=== PATIENT | female | born 1950 | race Caucasian/White ===

== ENCOUNTER 2024-12-20 15:06 | Emergency (ER) | payer MEDICARE, MEDICAID, SELFPAY ==
[2024-12-20 15:11] VITALS: BP 112/71; PULSE 86; RESP 20; TEMP 36.4; O2SAT 93
[2024-12-20 15:21] VITALS: PULSE 86; RESP 17; O2SAT 98; BMI 37.3
--- NOTE | 2024-12-20 15:21 | PC.NURSE ---
Pt. here from home to room 1, pt. states she took 50 units of Insulin Glargine-yfgn, pt. states it's a brand new insulin for her and she just started taking this insulin 12/14/24, pt. states she usually eats when she takes the medication and today she didn't eat. Pt. states she was found unresponsive by her grand daughter. Pt. is a GCS of 15 at this time.
--- NOTE | 2024-12-20 15:38 | EKG_ITS ---
[facility] Test Date: 2024-12-20 Pat Name: EVIN MUNOZ Department: Room: - Gender: Female Detail Manager: : [id number] Requested By: Wild More Order Number: [id number] Reading MD: Wild More Measurements Intervals [place] Rate: 83 P: 14 FL: 152 QRS: -28 QRSD: 88 T: 41 QT: 411 QTc: 484 Interpretive Statements SINUS RHYTHM LOW QRS VOLTAGE IN PRECORDIAL LEADS [QRS DEFLECTION < 1.0 mV IN CHEST LEADS] PATTERN CONSISTENT WITH PULMONARY DISEASE POSSIBLE RIGHT VENTRICULAR CONDUCTION DELAY [RSR (QR) IN V1/V2] INFERIOR MYOCARDIAL INFARCTION , PROBABLY OLD [40+ ms Q WAVE AND/OR ST/T ABNORMALITY IN II/aVF] Compared to ECG 12/05/2023 21:33:43 Sinus tachycardia no longer present Left-axis deviation no longer present Myocardial infarct finding still present /store/S0/[id number]/[id number].pdf
--- NOTE | 2024-12-20 15:38 | XR_ITS ---
Examination: AP chest single view Technique one AP portable semiupright chest single view Exam date and time: December 20, 2024 1541 hrs. Comparison April 17, 2019 Indications: Shortness of breath hypoglycemia today. Findings: Mild prominence cardiac contour Prominent vascular congestion Early septal edema the lung bases CABG Impression: Mild heart failure
--- NOTE | 2024-12-20 15:49 | PC.NURSE ---
Dr. Pat states it's ok to feed pt. sandwich, juice and chips given.
[2024-12-20] MEDS: SODIUM CHLORIDE 0.9% 1000 ML 1,000 ML 999 ML IV (15:50)
[2024-12-20 15:55] VITALS: BP 122/69; PULSE 81; RESP 17; TEMP 36.4; O2SAT 95
[2024-12-20 15:58] LABS: Collection Type, Urine Clean Catch; Squamous Epithelial Cell,Urine 0 /hpf (0-5)
--- NOTE | 2024-12-20 16:01 | PC.NURSE ---
Pt.'s daughter Patricia is bedside. [phone].
--- NOTE | 2024-12-20 16:01 | PD.EDRECHK ---
ED Recheck Abnl Lab Rx-RME/HPI General Chief Complaint: Recheck/Abnormal Lab/Rx Stated Complaint: HYPOGLYCEMIA Time Seen by Provider: 12/20/24 15:11 Arrival date/time: 12/20/24 15:06 RME / HPI RME / HPI narrative: This section includes all my notes and documentations, including HPI, PE, and ED course.? Wild Pat MD HPI: ROS: All negative except as documented in HPI. Physical Exam: General:? Alert and oriented.?? Eyes:? Conjunctivae and lids clear.?? ENT:? No nasal congestion.?? Neck:? Supple.?? Lungs:? No respiratory distress.?? Skin:? Warm and dry.?? Neuro:? Alert and oriented X 3.?? Physical Exam: General:? Alert and oriented.? No acute distress when remaining still.?? Eyes:? Conjunctivae and lids clear.? ENT:? No nasal congestion.? Neck:? Supple.? Heart:? RRR.? Lungs:? No respiratory distress.? Good air movement.? No rhonchi, wheezing, rales.?? Abdomen:? Soft and nontender.?? Legs:? No clubbing, cyanosis, edema.? Skin:? Warm and dry.?? Neuro:? Alert and oriented X 3.?? I reviewed all diagnostic test results. My interpretation of the EKG is? My interpretation of the chest x-ray is My review of the CT report is? Blood tests and urine tests? At this point, diagnoses include? Treatment here included? Significant improvement Not yet done: I discussed the case with our hospitalist.? About the presentation and exam and diagnostics and treatments here.? And need of further care in the hospital.? Will accept the patient. Not yet done: Based on my best medical judgment, made decision no further evaluation or treatment indicated at this time.? Patient understands and agrees to the discharge instructions customized and printed, see below. Wild Pat MD Related Data Home Medications ?Medication ?Instructions ?Recorded ?Confirmed atorvastatin 40 mg tablet (Lipitor) 40 mg PO HS CHOLESTEROL #0 tabs 09/23/15 04/18/19 carvedilol 3.125 mg tablet (Coreg) 3.125 mg PO BID HBP #0 tabs 09/23/15 04/18/19 gabapentin 300 mg capsule 300 mg PO TID NEUROPATHY #0 caps 09/23/15 04/18/19 cholecalciferol (vitamin D3) 50 4,000 unit PO QDAY #0 caps 06/16/17 04/18/19 mcg (2,000 unit) capsule (D3-2000) docusate sodium 250 mg capsule 250 mg PO BID ##60 06/16/17 04/18/19 (Stool Softener) magnesium 250 mg tablet 250 mg PO BID #0 tabs 06/16/17 04/18/19 cyclobenzaprine 10 mg tablet 10 mg PO TID 06/27/18 04/18/19 amlodipine 10 mg tablet 10 mg PO QDAY 01/09/19 04/18/19 furosemide 40 mg tablet 40 mg PO QDAY 01/09/19 04/18/19 olanzapine 5 mg disintegrating 5 mg PO QDAY 01/09/19 04/18/19 tablet pantoprazole 40 mg granules 40 mg PO QDAY 01/09/19 04/18/19 delayed-release for susp in packet apixaban 2.5 mg tablet (Eliquis) 2.5 mg PO BID 02/17/19 04/18/19 aspirin 81 mg tablet,delayed 81 mg PO QDAY 02/17/19 04/18/19 release hydrocodone 7.5 mg-acetaminophen 1 tab PO TID PRN Pain 02/17/19 04/18/19 325 mg tablet (Bradford) insulin glargine 100 unit/mL (3 50 unit subcut BID 02/17/19 04/18/19 mL) subcutaneous pen (Lantus Solostar U-100 Insulin) levothyroxine 75 mcg tablet 75 mcg PO BID 02/17/19 04/18/19 multivitamin 1 tab PO QDAY 04/18/19 04/18/19 potassium chloride 10 mEq 10 meq PO BID SUPPLEMENT 04/18/19 04/18/19 tablet,extended release(part/cryst) Allergies Allergy/AdvReac Type Severity Reaction Status Date / Time codeine Allergy Severe RASH,DYSPNE Verified 12/20/24 15:21 A Sulfa (Sulfonamide Allergy Unknown UNKNOWN Verified 12/20/24 15:21 Antibiotics) sulfamethoxazole Allergy Unknown UNKNOWN Verified 12/20/24 15:21 trimethoprim Allergy Unknown UNKONWN Verified 12/20/24 15:21 Iodine and Iodide Containing Allergy Verified 12/20/24 15:21 Produc Course Orders Category Date Time Status Bedside COVID-19 Antigen Test NOW Care 12/20/24 15:38 Active Bedside Influenza A&B Antigen Test NOW Care 12/20/24 15:38 Active EKG (ED ONLY) *Do not use* NOW Care 12/20/24 15:38 Completed Saline [Insert IV] NOW Care 12/20/24 15:38 Active Straight [In and Out Catheter] X1 Care 12/20/24 15:38 Active EKG (ED Only) Stat Exams 12/20/24 15:38 Draft XR chest 1V portable Stat Exams 12/20/24 15:38 Completed CBC Stat Lab 12/20/24 15:49 Completed CMP [Comprehensive Metabolic Panel] Stat Lab 12/20/24 15:49 Received Magnesium Stat Lab 12/20/24 15:49 Received TSH [Thyroid Stimulating Hormone] Stat Lab 12/20/24 15:49 Received Troponin I Stat Lab 12/20/24 15:49 Received UA, C/S IF [Urinalysis, C/S if Indicated] Stat Lab 12/20/24 15:43 Received Sodium Chloride 0.9% 1000 ml [Ns] 1,000 ml Med 12/20/24 15:38 Active IV 999 mls/hr Vital Signs Vital signs: Vital Signs Temperature 97.5 F 12/20/24 15:11 Pulse Rate 86 12/20/24 15:11 Respiratory Rate 20 12/20/24 15:11 Blood Pressure 112/71 12/20/24 15:11 Pulse Oximetry (%) 93 L 12/20/24 15:11 Oxygen Delivery Method Room Air 12/20/24 15:11 Recheck / Abnormal Lab / Rx Medications / Prescriptions Medication administrations:: Medication Administration History Sodium Chloride (Ns) 1,000 mls @ 999 mls/hr IV .Q1H1M ONE Stop: 12/20/24 16:38 Last Admin: 12/20/24 15:50 Dose: 999 mls/hr Documented By: ED Discharge Plan Prescriptions/Referrals Prescriptions/Med Rec: No Action atorvastatin [Lipitor] 40 MG tablet 40 mg PO HS Qty: 0 carvedilol [Coreg] 3.125 MG tablet 3.125 mg PO BID Qty: 0 gabapentin 300 MG capsule 300 mg PO TID Qty: 0 magnesium 250 MG tablet 250 mg PO BID Qty: 0 docusate sodium [Stool Softener] 250 MG capsule 250 mg PO BID Qty: 60 cholecalciferol (vitamin D3) [D3-2000] 2,000 UNIT capsule 4,000 unit PO QDAY Qty: 0 aspirin 81 mg Tablet,Delayed Release (Dr/Ec) 81 mg PO QDAY levothyroxine 75 mcg Tablet 75 mcg PO BID hydrocodone-acetaminophen [Bradford] 7.5-325 mg Tablet 1 tab PO TID PRN (Reason: Pain) Eliquis 2.5 mg Tablet 2.5 mg PO BID Lantus Solostar U-100 Insulin 100 unit/mL (3 mL) Insulin Pen 50 unit SUBCUT BID cyclobenzaprine 10 mg Tablet 10 mg PO TID furosemide 40 mg Tablet 40 mg PO QDAY amlodipine 10 mg Tablet 10 mg PO QDAY olanzapine 5 mg Tablet,Disintegrating 5 mg PO QDAY pantoprazole [address] For Susp In Packet 40 mg PO QDAY potassium chloride 10 MEQ tablet,ER particles/crystals 10 meq PO BID multivitamin Tablet 1 tab PO QDAY Patient/Caregiver Discharge Instructions Print Language: Kosovan
--- NOTE | 2024-12-20 16:01 | PD.EDADULT ---
ED General RME/HPI General Chief complaint: Recheck/Abnormal Lab/Rx Stated complaint: HYPOGLYCEMIA Time Seen by Provider: 12/20/24 15:11 Arrival date/time: 12/20/24 15:06 RME / HPI RME / HPI narrative: This section includes all my notes and documentations, including HPI, PE, and ED course.? Wild Pat MD HPI: 74 year old female with history of CVA, TIA, diabetes presents to the ED BIBA from home for evaluation of altered mental status today. Per medics, family found patient altered and on their arrival noted BS to be 35. Was given oral glucose and D10 with improvement in mentation. While in the ED patient has no complaints. ROS: All negative except as documented in HPI. Physical Exam: General:? Alert and oriented.? No acute distress when remaining still.?? Eyes:? Conjunctivae and lids clear.? ENT:? No nasal congestion.? Neck:? Supple.? Heart:? RRR.? Lungs:? No respiratory distress.? Good air movement.? No rhonchi, wheezing, rales.?? Abdomen:? Soft and nontender.?? Legs:? No clubbing, cyanosis, edema.? Skin:? Warm and dry.?? Neuro:? Alert and oriented X 3.??Cranial nerves II to XII grossly normal. No peripheral motor deficits. I reviewed all diagnostic test results. My interpretation of the EKG is?Sinus rhythm (83 bpm) with nonspecific ST-T changes. My interpretation of the chest x-ray is no acute findings. Blood tests and urine tests?unremarkable. At this point, diagnoses include?hypoglycemia due to insulin. Treatment here included?IV fluid. Significant improvement noted. Recommended decreasing insulin at home and more outpatient care. Based on my best medical judgment, made decision no further evaluation or treatment indicated at this time.? Patient understands and agrees to the discharge instructions customized and printed, see below. Discharge Instructions from Dr. Pat printed for you: 1. Fortunately, there is no evidence of heart attack or serious infection (such as pneumonia or UTI). 2. To prevent future severely low sugar levels which can be extremity dangerous, lower your Insulin glargine-yfgn to 35 units 2X daily, until cleared by your doctor. 3. See your doctor on 12/22/24 for recheck and further care. 4. Seek immediate medical care with worsening or with any concerns. Wild Pat MD Related Data Home Medications ?Medication ?Instructions ?Recorded ?Confirmed atorvastatin 40 mg tablet (Lipitor) 40 mg PO HS CHOLESTEROL #0 tabs 09/23/15 04/18/19 carvedilol 3.125 mg tablet (Coreg) 3.125 mg PO BID HBP #0 tabs 09/23/15 04/18/19 gabapentin 300 mg capsule 300 mg PO TID NEUROPATHY #0 caps 09/23/15 04/18/19 cholecalciferol (vitamin D3) 50 4,000 unit PO QDAY #0 caps 06/16/17 04/18/19 mcg (2,000 unit) capsule (D3-2000) docusate sodium 250 mg capsule 250 mg PO BID ##60 06/16/17 04/18/19 (Stool Softener) magnesium 250 mg tablet 250 mg PO BID #0 tabs 06/16/17 04/18/19 cyclobenzaprine 10 mg tablet 10 mg PO TID 06/27/18 04/18/19 amlodipine 10 mg tablet 10 mg PO QDAY 01/09/19 04/18/19 furosemide 40 mg tablet 40 mg PO QDAY 01/09/19 04/18/19 olanzapine 5 mg disintegrating 5 mg PO QDAY 01/09/19 04/18/19 tablet pantoprazole 40 mg granules 40 mg PO QDAY 01/09/19 04/18/19 delayed-release for susp in packet apixaban 2.5 mg tablet (Eliquis) 2.5 mg PO BID 02/17/19 04/18/19 aspirin 81 mg tablet,delayed 81 mg PO QDAY 02/17/19 04/18/19 release hydrocodone 7.5 mg-acetaminophen 1 tab PO TID PRN Pain 02/17/19 04/18/19 325 mg tablet (Pinole) insulin glargine 100 unit/mL (3 50 unit subcut BID 02/17/19 04/18/19 mL) subcutaneous pen (Lantus Solostar U-100 Insulin) levothyroxine 75 mcg tablet 75 mcg PO BID 02/17/19 04/18/19 multivitamin 1 tab PO QDAY 04/18/19 04/18/19 potassium chloride 10 mEq 10 meq PO BID SUPPLEMENT 04/18/19 04/18/19 tablet,extended release(part/cryst) Allergies Allergy/AdvReac Type Severity Reaction Status Date / Time codeine Allergy Severe RASH,DYSPNE Verified 12/20/24 15:21 A Sulfa (Sulfonamide Allergy Unknown UNKNOWN Verified 12/20/24 15:21 Antibiotics) sulfamethoxazole Allergy Unknown UNKNOWN Verified 12/20/24 15:21 trimethoprim Allergy Unknown UNKONWN Verified 12/20/24 15:21 Iodine and Iodide Containing Allergy Verified 12/20/24 15:21 Produc Review of Systems Review of Systems Systems Reviewed: All systems reviewed, normal except as documented Past Medical History Past Medical History NEUROLOGIC: Positive Neurological Disorders, Cerebrovascular Accident, Transient Ischemic Attacks (TIA) and Dementia CARDIAC: Positive Cardiac Disorders, Myocardial Infarction (X 2.), Hypercholesterolemia, Congestive Heart Failure, Congenital Heart Disease (Quad. bypass.) and Hypertension GASTROINTESTINAL: Positive Gastrointestinal Disorders and Gastroesophageal Reflux Disease REPRODUCTIVE: Positive Previous Pregnancies MUSCULOSKELETAL: Positive Carpal Tunnel Syndrome ENT: Positive Cataracts ENDOCRINE: Positive Endocrine Disorders, Diabetes Mellitus Type 2 and Hypothyroidism PSYCHO/SOCIAL: Positive Bipolar Disorder, Depression and Anxiety OTHER HISTORY: Positive Falls, Blood Transfusions, Chicken Pox, Measles and Mumps Family History FAMILY HISTORY: Positive Family Psychiatric Problems, Family Cardiac Disorders and Family Cancer Surgical History SURGICAL: Positive Cardiac Surgery, Coronary Artery Bypass Graft, Tonsillectomy, Abdominal Surgery, Joint Replacement and Hysterectomy Social History SMOKING STATUS: Former smoker SECOND HAND EXPOSURE: No ED Exam Narrative Physical exam: As noted in HPI Course Quality Measures none Orders Category Date Time Status Bedside COVID-19 Antigen Test NOW Care 12/20/24 15:38 Active Bedside Influenza A&B Antigen Test NOW Care 12/20/24 15:38 Completed EKG (ED ONLY) *Do not use* NOW Care 12/20/24 15:38 Completed Glucose [Bedside Blood Glucose] NOW Care 12/20/24 16:36 Active Saline [Insert IV] NOW Care 12/20/24 15:38 Active EKG (ED Only) Stat Exams 12/20/24 15:38 Draft XR chest 1V portable Stat Exams 12/20/24 15:38 Completed BNP [B-Type Natriuretic Peptide] Stat Lab 12/20/24 15:49 Completed CBC Stat Lab 12/20/24 15:49 Completed CMP [Comprehensive Metabolic Panel] Stat Lab 12/20/24 15:49 Completed Magnesium Stat Lab 12/20/24 15:49 Completed TSH [Thyroid Stimulating Hormone] Stat Lab 12/20/24 15:49 Completed Troponin I Stat Lab 12/20/24 15:49 Completed UA, C/S IF [Urinalysis, C/S if Indicated] Stat Lab 12/20/24 15:43 Completed Urine Culture Stat Lab 12/20/24 15:43 Received Sodium Chloride 0.9% 1000 ml [Ns] 1,000 ml Med 12/20/24 15:38 Discontinued IV 999 mls/hr Vital Signs Vital signs: Vital Signs Temperature 97.5 F 12/20/24 15:11 Pulse Rate 86 12/20/24 15:11 Respiratory Rate 20 12/20/24 15:11 Blood Pressure 112/71 12/20/24 15:11 Pulse Oximetry (%) 93 L 12/20/24 15:11 Oxygen Delivery Method Room Air 12/20/24 15:11 Pulse ox is 93% on room air which is low. [facility] Patient data External records reviewed:: [facility] previous records (I reviewed ED visit on 12/05/2023) and EMS form Clinical information provided by:: patient and EMS Social determinants that could affect healthcare access:: none Patient has the following chronic illnesses:: CVA, TIA, DM How is presenting disease/condition affected by chronic disease/condition?: exacerbated by Evaluation data The following diagnostics were reviewed and interpreted by me:: lab results, radiology exam(s) and EKG tracing(s) Lab and/or radiology exams considered but not ordered:: My interpretation of the EKG is: Sinus rhythm (83 bpm) with nonspecific ST-T changes. Wild Pat MD Interpretation Summary: Normal diagnostics Medications Medications considered but not ordered:: None Medication administrations:: Medication Administration History Discontinued Medications Sodium Chloride (Ns) 1,000 mls @ 999 mls/hr IV .Q1H1M ONE Stop: 12/20/24 16:38 Last Admin: 12/20/24 15:50 Dose: 999 mls/hr Documented By: ED IV fluid Consultations Consultation(s) initiated? (list below): No Diagnosis Differential Diagnosis ED Complaint MDM: hypoglycemia, dehydration, sepsis Most likely diagnosis given after review of the tests above:: Hypoglycemia due to insulin Admission Indicated Admission indicated?: not indicated Explain why admission is indicated or not indicated:: Admission was not indicated Admission Request Was there a request for admission?: No Disposition Plan Disposition Plan: Discharge Discharge Attestation Discharge Attestation: The patient and all family members were given an opportunity to ask questions and understood the discharge instructions. Discharge instructions specifically effects, indications for sooner follow up or return to the emergency department, and the expected course of current diagnosis. Patient condition: Stable Medical Decision Making Differential Diagnosis Differential Diagnosis: hypoglycemia, dehydration, sepsis Lab Data 12/20/24 15:49 12/20/24 15:49 Labs: Lab Results 12/20/24 12/20/24 Range/Units 15:43 15:49 WBC 9.5 (3.6-11.0) Thou/mm3 RBC 4.74 (4.00-5.20) Miln/mm3 Hgb 12.4 (12.0-16.0) g/dL Hct 37.9 (36.0-46.0) % MCV 80 (80-100) fL MCH 26.2 (25.0-35.0) pg MCHC 32.7 (31.0-37.0) g/dl RDW Std Deviation 43.1 (36.4-46.3) fL Plt Count 262 (140-440) Thou/mm3 Neut % (Auto) 77 (37-80) % Lymph % (Auto) 14 (10-50) % Stephens % (Auto) 7 (0-12) % Eos % (Auto) 1 (0-10) % Baso % (Auto) 0 (0-2.5) % Neut # (Auto) 7.3 (1.8-7.7) Thou/mm3 Lymph # (Auto) 1.4 (1.0-4.8) Thou/mm3 Stephens # (Auto) 0.7 (0.0-0.8) Thou/mm3 Eos # (Auto) 0.1 (0.0-0.5) Thou/mm3 Baso # (Auto) 0.0 (0.0-0.2) Thou/mm3 Immature Gran # (Auto) 0.04 H (0.00-0.00) Thou/mm3 Absolute Nucleated RBC 0.00 (0.00-0.00) Thou/mm3 Immature Gran % 0 (0-0) % Nucleated RBC % 0 (0) /100 WBC Sodium 142 (136-145) mMol/L Potassium 4.0 (3.4-5.1) mMol/L Chloride 105 (98-107) mMol/L Carbon Dioxide 27.5 (20.0-31.0) mMol/L Anion Gap 10 (7-16) BUN 11 (9-23) mg/dL Creatinine 1.0 (0.6-1.3) mg/dL Estim Creat Clear Calc 63.4 (>60) mL/min eGFR 59 L (60 - ) See Note BUN/Creatinine Ratio 11 L (12-20) Ratio Glucose 130 H (74-106) mg/dL Calculated Osmolality 284 (275-295) Calcium 9.8 (8.3-10.6) mg/dL Corrected Calcium 9.8 (8.5-10.1) mg/dL Magnesium 2.1 (1.6-2.6) mg/dL Total Bilirubin 0.3 (0.3-1.2) mg/dL AST 29 (0-34) U/L ALT 17 (10-49) U/L Alkaline Phosphatase 135 H (46-116) U/L Troponin I < 0.002 (0.0-0.045) ng/mL B-Natriuretic Peptide 51 (0-100) pg/mL Total Protein 7.3 (5.7-8.2) gm/dL Albumin 4.4 (3.4-4.8) gm/dL Globulin 2.9 (2.3-3.5) gm/dL Albumin/Globulin Ratio 1.5 (1.2-2.2) TSH 1.53 (0.55-4.78) uIU/mL Ur Collection Type Clean Catch Urine Color Lt-Yellow (Lt Yel-Yel) Urine Clarity Clear (Clear/Hazy) Urine pH 7.5 H (5.0-7.0) Ur Specific [place] 1.009 (1.001-1.035) Urine Protein Negative (Neg - Trace) Urine Glucose (UA) Negative (Negative) Urine Ketones Negative (Negative) Urine Blood Negative (Negative) Urine Nitrite Positive (Negative) Urine Bilirubin Negative (Negative) Urine Urobilinogen (Auto) Negative (0.0-1.0) mg/dL Ur Leukocyte Esterase Negative (Negative) Urine RBC < 1 (0-3) /hpf Urine WBC 1 (0-5) /hpf Ur Squamous Epith Cells 0 (0-5) /hpf Urine Bacteria Rare (None) Ur Culture Indicated? Yes Discharge Plan Plan Patient Disposition: HOME (Self Care) Prescriptions/Referrals Prescriptions/Med Rec: No Action atorvastatin [Lipitor] 40 MG tablet 40 mg PO HS Qty: 0 carvedilol [Coreg] 3.125 MG tablet 3.125 mg PO BID Qty: 0 gabapentin 300 MG capsule 300 mg PO TID Qty: 0 magnesium 250 MG tablet 250 mg PO BID Qty: 0 docusate sodium [Stool Softener] 250 MG capsule 250 mg PO BID Qty: 60 cholecalciferol (vitamin D3) [D3-2000] 2,000 UNIT capsule 4,000 unit PO QDAY Qty: 0 aspirin 81 mg Tablet,Delayed Release (Dr/Ec) 81 mg PO QDAY levothyroxine 75 mcg Tablet 75 mcg PO BID hydrocodone-acetaminophen [Pinole] 7.5-325 mg Tablet 1 tab PO TID PRN (Reason: Pain) Eliquis 2.5 mg Tablet 2.5 mg PO BID Lantus Solostar U-100 Insulin 100 unit/mL (3 mL) Insulin Pen 50 unit SUBCUT BID cyclobenzaprine 10 mg Tablet 10 mg PO TID furosemide 40 mg Tablet 40 mg PO QDAY amlodipine 10 mg Tablet 10 mg PO QDAY olanzapine 5 mg Tablet,Disintegrating 5 mg PO QDAY pantoprazole [address] For Susp In Packet 40 mg PO QDAY potassium chloride 10 MEQ tablet,ER particles/crystals 10 meq PO BID multivitamin Tablet 1 tab PO QDAY Problem List Clinical Impression: Hypoglycemia Patient/Caregiver Discharge Instructions Discharge Activity: activity as tolerated Education Materials: ED Diabetic Insulin Reaction Additional Instructions: Discharge Instructions from Dr. Pat printed for you: 1. Fortunately, there is no evidence of heart attack or serious infection (such as pneumonia or UTI). 2. To prevent future severely low sugar levels which can be extremity dangerous, lower your Insulin glargine-yfgn to 35 units 2X daily, until cleared by your doctor. 3. See your doctor on 12/22/24 for recheck and further care. 4. Seek immediate medical care with worsening or with any concerns. Print Language: Mongolian Stand Alone Forms: Brittny Award Info., Patient Portal Info Letter
[2024-12-20 16:02] LABS: Basophils % (Auto) 0 % (0-2.5); Eosinophils # (Auto) 0.1 Thou/mm3 (0.0-0.5); Eosinophils % (Auto) 1 % (0-10); Hematocrit 37.9 % (36.0-46.0); Hemoglobin 12.4 g/dL (12.0-16.0); Immature Granulocytes % (Auto) 0 % (0-0); Immature Granulocytes Auto 0.04 Thou/mm3 (0.00-0.00); Lymphocytes # (Auto) 1.4 Thou/mm3 (1.0-4.8); Lymphocytes % (Auto) 14 % (10-50); Mean Corpuscular HGB Conc 32.7 g/dl (31.0-37.0); Mean Corpuscular Hemoglobin 26.2 pg (25.0-35.0); Mean Corpuscular Volume 80 fL (80-100); Monocytes # (Auto) 0.7 Thou/mm3 (0.0-0.8); Monocytes % (Auto) 7 % (0-12); Neutrophils # (Auto) 7.3 Thou/mm3 (1.8-7.7); Neutrophils % (Auto) 77 % (37-80); Nucleated Red Blood Cell % 0 /100 WBC (0); Platelet Count 262 Thou/mm3 (140-440); RDW Standard Deviation 43.1 fL (36.4-46.3); Red Blood Count 4.74 Miln/mm3 (4.00-5.20); White Blood Count 9.5 Thou/mm3 (3.6-11.0)
--- NOTE | 2024-12-20 16:03 | PC.NURSE ---
Pt. states she has history of a stroke and has weakness to the left side of her body.
[2024-12-20 16:24] LABS: Alanine Aminotransferase 17 U/L (10-49); Albumin, Serum 4.4 gm/dL (3.4-4.8); Albumin/Globulin Ratio 1.5 (1.2-2.2); Alkaline Phosphatase 135 U/L (46-116); Anion Gap 10 (7-16); Aspartate Amino Transferase 29 U/L (0-34); BUN/Creatinine Ratio 11 Ratio (12-20); Bilirubin,Total 0.3 mg/dL (0.3-1.2); Blood Urea Nitrogen 11 mg/dL (9-23); Calcium 9.8 mg/dL (8.3-10.6); Calcium (Corrected) 9.8 mg/dL (8.5-10.1); Carbon Dioxide 27.5 mMol/L (20.0-31.0); Chloride 105 mMol/L (98-107); Estimated Creatinine Clearance 63.4 mL/min (>60); Globulin 2.9 gm/dL (2.3-3.5); Glucose 130 mg/dL (74-106); Magnesium 2.1 mg/dL (1.6-2.6); Osmolality,Calculated 284 (275-295); Sodium 142 mMol/L (136-145); Thyroid Stimulating Hormone 1.53 uIU/mL (0.55-4.78); Total Protein 7.3 gm/dL (5.7-8.2); Troponin I < 0.002 ng/mL (0.0-0.045); eGFR 59 See Note
[2024-12-20 16:35] LABS: Bacteria,Urine Rare; Bilirubin,Urine Negative (Negative); Blood,Urine Negative (Negative); Clarity,Urine Clear (Clear/Hazy); Color,Urine Lt-Yellow (Lt Yel-Yel); Glucose, Urine Negative (Negative); Ketones,Urine Negative (Negative); Leukocyte Esterase,Urine Negative (Negative); Nitrite,Urine Positive (Negative); PH,Urine 7.5 (5.0-7.0); Protein,Urine Negative (Neg - Trace); RBC,Urine < 1 /hpf (0-3); Specific Gravity,Urine 1.009 (1.001-1.035); Urobilinogen,Urine Negative mg/dL (0.0-1.0); WBC,Urine 1 /hpf (0-5)
[2024-12-20 16:50] LABS: Culture Indicated,Urine Yes
[2024-12-20 17:04] LABS: B-Type Natriuretic Peptide 51 pg/mL (0-100)
[2024-12-20 17:36] VITALS: PULSE 84; RESP 18; TEMP 36.6; O2SAT 99
== END 2024-12-20 17:36 | disposition home or self-care (01) ==
LOC: SERX 18:05
PROVIDERS: Emergency Provider Emergency Medicine; PCP Family Medicine
DX: E11.649 Type 2 diabetes mellitus with hypoglycemia without coma (principal)
CPT/HCPCS: 36415; 71045; 80053; 81001; 83735; 83880; 84443; 84484; 85025; 87077; 87086; 87186; 87400; 87811; 93005; 99284; J7030